=== PATIENT | female | born 1970 ===

== ENCOUNTER 2020-01-20 12:33 | Emergency (ER) | payer SELFPAY ==
[~2020-01-20] VITALS: Ht 160 cm; Wt 66.0 kg
--- NOTE | 2020-01-20 13:48 | NUR ---
animal rehabilitator [id number] used for assessment and clinical screen. per pt she has been having high blood pressure. pt has rx for lisinopril 10 mg from [facility]. pt does not want to take medication as she has recently had a family member pass away from cancer who was taking the same medication. this scared her into not taking the meds. pt here for her htn and to be tested for covid.
[2020-01-20 13:55] LABS: BASOPHILS # (AUTO) 0.09 x10^3/uL (0-0.1); BASOPHILS % (AUTO) 1 % (0-1); EOSINOPHILS # (AUTO) 0.06 x10^3/uL (0-0.4); EOSINOPHILS % (AUTO) 1 % (1-7); LYMPHOCYTES # (AUTO) 2.17 x10^3/uL (1-3.4); LYMPHOCYTES % (AUTO) 22 % (22-44); MD NO; MEAN CORPUSCULAR HEMOGLOBIN 27.3 pg (27.0-34.8); MEAN CORPUSCULAR VOLUME 82.8 fL (80-100); MEAN PLATELET VOLUME 10.6 fL (7.4-10.4); MONOCYTES # (AUTO) 0.65 x10^3/uL (0.2-0.8); MONOCYTES % (AUTO) 7 % (2-9); NEUTROPHILS % (AUTO) 70 % (42-75); PLATELET COUNT 294 x10^3/uL (130-400); RED BLOOD COUNT 5.13 x10^6/uL (3.82-5.3); RED CELL DISTRIBUTION WIDTH 15.2 % (9.6-15.2)
[2020-01-20 14:05] LABS: ALANINE AMINOTRANSFERASE 38 U/L (12-78); ALBUMIN 3.9 g/dL (3.4-5.0); ANION GAP 11 mmol/L (5-15); C-REACTIVE PROTEIN, QUANT 0.28 mg/dL (0.02-0.49); CALCIUM 8.8 mg/dL (8.5-10.1); CHLORIDE 107 mmol/L (98-107); CREATININE 0.82 mg/dL (0.55-1.02)
[2020-01-20 14:08] LABS: ALKALINE PHOSPHATASE 119 U/L (45-117); BILIRUBIN,TOTAL 0.4 mg/dL (0.2-1.0); TOTAL PROTEIN 8.2 g/dL (6.4-8.2)
[2020-01-20 15:20] VITALS: BP 168/80
--- NOTE | 2020-01-20 15:21 | NUR ---
break RN note: dc orders received. this RN provided pt with dc instructions and script, educated regarding rx for pepcid and doxycyline. pt a&o, resps even and unlabored. pt able to speak in full sentences without difficulty. pt verbalizes understanding of dc instructions including self isolation while covid test is pending. pt ambulatory to dc desk with steady gait, all questions answered.
== END 2020-01-20 15:22 ==
LOC: ED 12:37
DX: J18.1 Lobar pneumonia, unspecified organism (principal); Z20.828 Contact with and (suspected) exposure to other viral communicable diseases; R09.81 Nasal congestion; I44.4 Left anterior fascicular block; R94.31 Abnormal electrocardiogram [ECG] [EKG]; M79.10 Myalgia, unspecified site; I10 Essential (primary) hypertension
CPT/HCPCS: 36415; 71045; 80053; 84145; 85025; 86140; 87635; 93005; 99285